=== PATIENT | female | born 1965 | race African-American/Black ===

== ENCOUNTER 2018-12-23 15:34 | Inpatient (IN) | payer OTHER ==
[2018-12-23 17:10] VITALS: BMI 40.7
--- NOTE | 2018-12-23 20:29 | HP ---
CIWA Score - Admission Criteria OASAS Guidelines: Admission for Medically Managed Detox: Requires at least one of the followin. CIWA greater than 12 2. Seizures within the past 24 hours 3. Delirium tremens within the past 24 hours 4. Hallucinations within the past 24 hours 5. Acute intervention needed for co occurring medical disorder 6. Acute intervention needed for co occurring psychiatric disorder 7. Severe withdrawal that cannot be handled at a lower level of care (continued vomiting, continued diarrhea, abnormal vital signs) requiring intravenous medication and/or fluids 8. Admission ROS S - HPI Chief Complaint: seeking rehab services for continuity of care. Allergies/Adverse Reactions: Allergies Allergy/AdvReac Type Severity Reaction Status Date / Time No Known Allergies Allergy Verified 12/23/18 18:33 History of Present Illness: 53 y.o female with alcohol and cocaine dependence here for rehab services. Client was referred by [facility] after completing detox today. This is her first admission here. Presents a/o x3 nad she reports her longest clean time is 8 years. she relapsed in 2017 after returning to the community. She denies hx/o seizures, si/hi, avh. She reports she is homeless, unemployed, she is on parole. pmhx- chf, herniated spinal disc and sciatica,copd, htn, dm psych- anxiety, depression and bipolar d/o Exam Limitations: No Limitations - Ebola screening Have you traveled outside of the country in the last 21 days: No Have you had contact with anyone from an Ebola affected area: No Have you been sick,other than usual withdrawal symptoms: No Do you have a fever: No - Review of Systems Constitutional: Chills, Malaise, Changes in sleep EENT: reports: Recent change in vision (lost glasses), Dental Problems (missing teeth) Respiratory: reports: Shortness of Breath Cardiac: reports: No Symptoms Reported GI: reports: Diarrhea : reports: No Symptoms Reported Musculoskeletal: reports: Back Pain (chronic), Joint Pain Integumentary: reports: No Symptoms Reported Neuro: reports: Headache, Tremors Endocrine: reports: Other (hx/o sweats) Hematology: reports: No Symptoms Reported Psychiatric: reports: Orientated x3, Anxious, Depressed Other Systems: Reviewed and Negative Patient History - Patient Medical History Hx Anemia: No Hx Asthma: Yes Hx Chronic Obstructive Pulmonary Disease (COPD): Yes Hx Cancer: No Hx Cardiac Disorders: No Hx Congestive Heart Failure: Yes Hx Hypertension: Yes Hx Hypercholesterolemia: No Hx Pacemaker: No HX Cerebrovascular Accident: No Hx Seizures: No Hx Dementia: No Hx Diabetes: Yes Hx Gastrointestinal Disorders: No Hx Liver Disease: Yes Hx Genitourinary Disorders: No Hx Sexually Transmitted Disorders: No Hx Renal Disease (ESRD): No Hx Thyroid Disease: No Hx Human Immunodeficiency Virus (HIV): No Hx Hepatitis C: No Hx Depression: Yes Hx Suicide Attempt: No Hx Bipolar Disorder: Yes Hx Schizophrenia: No Other Medical History: denies - Patient Surgical History Past Surgical History: Yes Hx Cholecystectomy: Yes - PPD History Previous Implant?: Yes Documented Results: Positive w/o proof Implanted On Prior [facility] Admission?: No PPD to be Administered?: No - Reproductive History Patient is a Female of Child Bearing Age (11 -55 yrs old): Yes LMP comment: menapause at 46 Patient : No ([facility]) - Smoking Cessation Smoking history: Current every day smoker Have you smoked in the past 12 months: Yes Aproximately how many cigarettes per day: 10 Cigars Per Day: 0 Hx Chewing Tobacco Use: No Initiated information on smoking cessation: Yes 'Breaking Loose' booklet given: 12/23/18 - Substance & Tx. History Hx Alcohol Use: Yes Hx Substance Use: Yes Substance Use Type: Alcohol, Cocaine Hx Substance Use Treatment: Yes ([facility]) - Substances Abused vodka Route: Oral Frequency: Daily Amount used: 2 pints Age of first use: 18 Date of Last Use: 12/20/18 cocaine Route: Smoking Frequency: 1-2 times per week Amount used: 8 ball Age of first use: 19 Date of Last Use: 12/20/18 Family Disease History - Family Disease History Family Disease History: Diabetes: Brother, [place]: Father (stomach), Other: Mother ( htn, alzhiemers) Admission Physical Exam [facility] - Vital Signs Vital Signs: Vital Signs - 24 hr 12/23/18 17:08 Temperature 98.1 F Pulse Rate 90 Respiratory 18 Rate Blood Pressure 130/84 - Physical General Appearance: Yes: Appropriately Dressed, Anxious HEENTM: Yes: EOMI, Normocephalic, Normal Voice, FLACA, Pharynx Normal, Other ( missing teeth) Respiratory: Yes: Chest Non-Tender, Lungs Clear, Normal Breath Sounds, No Respiratory Distress, No Accessory Muscle Use Neck: Yes: No masses,lesions,Nodules, Supple, Trachea in good position Breast: Yes: Breast Exam Deferred Cardiology: Yes: Regular Rhythm, S1, S2, Tachycardia Abdominal: Yes: Normal Bowel Sounds, Non Tender, Soft, Protuberent Genitourinary: Yes: Other (no c/o) Back: Yes: Normal Inspection, Decreased Range of Motion Musculoskeletal: Yes: full range of Motion, Gait Steady, Back pain (c/o) Extremities: Yes: Normal Capillary Refill, Normal Range of Motion, Non-Tender Neurological: Yes: Fully Oriented, Alert, Motor Strength 5/5, Normal Mood/Affect Integumentary: Yes: Normal Color, Dry, Warm, Other (chronic wound dry scabbed to right pointer finger) Lymphatic: Yes: Within Normal Limits - Diagnostic (1) Uncomplicated alcohol dependence Current Visit: Yes Status: Chronic (2) Cocaine abuse, uncomplicated Current Visit: Yes Status: Chronic (3) Nicotine dependence Current Visit: Yes Status: Chronic Qualifiers: Nicotine product type: cigarettes Substance use status: uncomplicated Qualified Code(s): F17.210 - Nicotine dependence, cigarettes, uncomplicated (4) History of positive PPD Current Visit: Yes Status: Chronic (5) HTN (hypertension) Current Visit: Yes Status: Chronic Qualifiers: Hypertension type: essential hypertension Qualified Code(s): I10 - Essential (primary) hypertension (6) Asthma Current Visit: Yes Status: Chronic Qualifiers: Asthma severity: mild Asthma persistence: intermittent Asthma complication type: unspecified Qualified Code(s): J45.20 - Mild intermittent asthma, uncomplicated (7) Diabetes Current Visit: Yes Status: Chronic Qualifiers: Diabetes mellitus type: type 2 (8) COPD (chronic obstructive pulmonary disease) Current Visit: Yes Status: Chronic (9) Substance induced mood disorder Current Visit: Yes Status: Chronic (10) CHF (congestive heart failure) Current Visit: Yes Status: Chronic (11) Sciatica Current Visit: Yes Status: Chronic Cleared for Admission [facility] - Detox or Rehab Detox Regimen/Protocol: Not Applicable Claeared for Rehab Admission: Yes [facility] Breath Alcohol Content Breath Alcohol Content: 0 Urine Pregancy Test - Result Urine Test Results: Negative - NO Line Present Urine Drug Screen - Results Drug Screen Negative: No Urine Drug Screen Results: WADE-Cocaine, BZO-Benzodiazepines Inpatient Rehab Admission - Rehab Decision to Admit Inpatient rehab admission?: Yes - Initial Determination Are CD services needed?: Yes Free of communicable disease: Yes Not in need of hospitalization: Yes - Rehab Admission Criteria Previous failed treatment: Yes Poor recovery environment: Yes Comorbidities: Yes Lacks judgement: No Patient is meeting Inpatient Rehab admission criteria:: Yes
[2018-12-23] MEDS ORDERED: IBUPROFEN 400 MG TABLET (FP) PO PRN (20:46)
[2018-12-23] MEDS ORDERED: LOPERAMIDE HCL 2 MG CAPSULE PO PRN (20:46)
[2018-12-23] MEDS ORDERED: MAGNESIUM CITRATE 300 ML BOTTLE PO PRN (20:46)
[2018-12-23] MEDS ORDERED: P-EPHED 60MG/TRIPROLIDI 2.5MG TABLET PO PRN (20:46)
[2018-12-23] MEDS ORDERED: NICOTINE POLACRILEX 2 MG GUM BC PRN (20:46)
[2018-12-23] MEDS ORDERED: hydrOXYzine PAMOATE 50 MG CAPSULE (FP) PO PRN (20:46)
[2018-12-23] MEDS ORDERED: guaiFENesin/D-METHORPHAN HB 10 ML UNIT-DOSE CUPS PO PRN (20:46)
[2018-12-23] MEDS ORDERED: MAGNESIUM HYDROX 2400MG/30ML ORAL SUSPENSION 30 ML CUP PO PRN (20:46)
[2018-12-23] MEDS ORDERED: MAG HYDROX/AL HYDROX/SIMETH 30 ML UNIT-DOSE CUP PO PRN (20:46)
[2018-12-23] MEDS ORDERED: ACETAMINOPHEN 325 MG TABLET (FP) PO PRN (20:46)
[2018-12-23] MEDS ORDERED: MELATONIN 5 MG TABLETS PO PRN (22:00)
[2018-12-23] MEDS ORDERED: metFORMIN HCL 500 MG TABLET (FP) PO SCH (22:00)
[2018-12-23 23:01] LABS: URINE APPEARANCE SLCLOUDY; URINE BILIRUBIN NEGATIVE (<2.0 mg/dL); URINE COLOR YELLOW; URINE GLUCOSE (UA) NEGATIVE (NEGATIVE); URINE KETONE NEGATIVE (NEGATIVE); URINE LEUK ESTERASE 3+ (NEGATIVE); URINE NITRITE NEGATIVE (NEGATIVE); URINE PROTEIN NEGATIVE (NEGATIVE)
[2018-12-23 23:04] LABS: EPI CELLS RARE /HPF (FEW); URINE MUCUS RARE
[2018-12-23] MEDS: METHOCARBAMOL 500 MG TABLET PO SCH (23:34)
[2018-12-23] MEDS: CARVEDILOL 6.25 MG TABLET (FP) PO SCH (23:34)
[2018-12-23] MEDS: THIAMINE HCL 100 MG TABLET (FP) PO SCH (23:34)
[2018-12-23] MEDS: GABAPENTIN 400 MG CAPSULE (FP) PO SCH (23:35)
[2018-12-23] MEDS: MONTELUKAST NA 10 MG TABLET PO SCH (23:35)
[2018-12-23] MEDS: FLUTICASONE/SALMETEROL 100 MCG/50 MCG DISKUS IH SCH (23:35)
[2018-12-23] MEDS: ATORVASTATIN CA 40 MG TABLET (FP) PO SCH (23:35)
[2018-12-23] MEDS: ALBUTEROL SO4 8 GM HFA INHALER IH SCH (23:37)
[2018-12-24] MEDS: ALBUTEROL SO4 8 GM HFA INHALER IH SCH ×2 (05:54→09:05)
[2018-12-24] MEDS: metFORMIN HCL 500 MG TABLET (FP) PO SCH ×2 (06:34→17:08)
[2018-12-24] MEDS: GABAPENTIN 400 MG CAPSULE (FP) PO SCH ×3 (06:34→21:20)
[2018-12-24] MEDS: NICOTINE 14 MG/24 HOURS TOPICAL PATCH TD SCH (09:52)
[2018-12-24] MEDS: LISINOPRIL 20 MG TABLET (FP) PO SCH (09:52)
[2018-12-24] MEDS: ASPIRIN 81 MG CHEWABLE TABLETS PO SCH (09:53)
[2018-12-24] MEDS: PRENATAL VITAMINS W/ FOLIC ACID TABLET (FP) PO SCH (09:53)
[2018-12-24] MEDS: METHOCARBAMOL 500 MG TABLET PO SCH ×4 (09:53→21:20)
[2018-12-24] MEDS: CARVEDILOL 6.25 MG TABLET (FP) PO SCH ×2 (09:56→21:20)
[2018-12-24] MEDS: FUROSEMIDE 20 MG TABLET (FP) PO SCH (09:56)
[2018-12-24] MEDS: FLUTICASONE/SALMETEROL 100 MCG/50 MCG DISKUS IH SCH ×2 (09:56→21:22)
[2018-12-24] MEDS: ZAFIRLUKAST 20 MG PO SCH (11:19)
[2018-12-24 13:12] LABS: HEMATOCRIT 36.4 % (32.4-45.2); HEMOGLOBIN 12.3 GM/dL (10.7-15.3); MCH 30.4 pg (25.7-33.7); MCHC 33.7 g/dl (32.0-36.0); MEAN CELL VOLUME 90.4 fl (80-96); MEAN PLT VOLUME 9.3 fl (7.5-11.1); PLATELET COUNT 209 K/MM3 (134-434); RBC 4.03 M/mm3 (3.60-5.2); RDW 15.5 % (11.6-15.6); WHITE BLOOD COUNT 5.7 K/mm3 (4.0-10.0)
[2018-12-24 13:17] LABS: ALK PHOS 101 U/L (45-117); ANION GAP 7 MMOL/L (8-16); BILIRUBIN,TOTAL 0.4 mg/dL (0.2-1); BLOOD UREA NITROGEN 16 mg/dL (7-18); CHLORIDE 107 mmol/L (98-107); CO2 28 mmol/L (21-32); CREATININE 1.4 mg/dL (0.55-1.3); GLUCOSE,RANDOM 117 mg/dL (74-106); POTASSIUM 4.1 mmol/L (3.5-5.1); SGOT/AST 7 U/L (15-37); SGPT/ALT 12 U/L (13-61); SODIUM 142 mmol/L (136-145); TOT PROT 6.2 g/dl (6.4-8.2)
--- NOTE | 2018-12-24 14:01 | EKG ---
Test Reason : Blood Pressure : / mmHG Vent. Rate : 096 BPM Atrial Rate : 096 BPM P-R Int : 164 ms QRS Dur : 102 ms QT Int : 382 ms P-R-T Axes : 061 -48 100 degrees QTc Int : 482 ms NORMAL SINUS RHYTHM POSSIBLE LEFT ATRIAL ENLARGEMENT LEFT ANTERIOR FASCICULAR BLOCK INFERIOR INFARCT , AGE UNDETERMINED ANTERIOR INFARCT , AGE UNDETERMINED T WAVE ABNORMALITY, CONSIDER LATERAL ISCHEMIA ABNORMAL ECG NO PREVIOUS ECGS AVAILABLE Confirmed by MD Shad, Taz ([id number]) on 12/24/2018 2:01:03 PM Referred By: Confirmed By:Taz Kulkarni MD
--- NOTE | 2018-12-24 14:15 | CONSULT ---
[facility] Psychiatric Consult - Data Date of interview: 12/24/18 Admission source: [facility] detox Identifying data: Ms Morrell is a 53 years old single Black female, mother of 6 children, unemployed receiving public assistance, homeless seeking detox treatment for alcohol and cocaine Substance Abuse History: Reports history of alcohol and cocaine use. Refer to addiction counselor's summary for further information Medical History: Significant for COPD, hypertension, type 2 diabetes mellitus, congestive heart failure, herniated disc/sciatica, history of treatment for PPD + cholecystectomy. Smokes 10 cigarettes daily Psychiatric History: Reports that her first psychiatric contact was while in [place] [facility] between 2007 and 2016. She was started on Seroquel and Trazadone. Reports 2 previous psychiatric hospitalizations both at [facility] after her release from [place] [facility] in [facility]. Her most recent hospialization was in 2018 for depression. Reports receiving psychiatric outpatient treatment at [facility] in the [place] and she is prescribed Seroquel 200 mg po HS and Trazadone 100 mg po HS. Denies experiencing psychotic, manic or depressive symptoms, S/H ideations. Physical/Sexual Abuse/Trauma History: Denies history of emotional, physical or sexual abuse as well as DV relationship Additional Comment: Reports history of multiple previous arrests. Reports being currently on parole ending Oct 2020 Mental Status Exam - Mental Status Exam Alert and Oriented to: Time, Place, Person Cognitive Function: Fair Patient Appearance: Well Groomed Mood: Hopeful, Euthymic Affect: Appropriate Patient Behavior: Cooperative Speech Pattern: Clear Voice Loudness: Normal Thought Process: Intact Thought Disorder: Not Present Suicidal Ideation: Denies Homicidal Ideation: Denies Insight/Judgement: Fair Sleep: Poorly Appetite: Good Muscle strength/Tone: Normal Gait/Station: Normal Psychiatric Findings - Problem List ([place] 1, 2,3) (1) Bipolar disorder Current Visit: Yes Status: Chronic (2) Substance-induced sleep disorder Current Visit: Yes Status: Acute (3) Alcohol dependence Current Visit: Yes Status: Acute (4) Cocaine dependence Current Visit: Yes Status: Acute (5) Nicotine dependence Current Visit: Yes Status: Chronic (6) CHF (congestive heart failure) Current Visit: Yes Status: Chronic (7) COPD (chronic obstructive pulmonary disease) Current Visit: Yes Status: Chronic (8) Diabetes Current Visit: Yes Status: Chronic Qualifiers: Diabetes mellitus type: type 2 (9) HTN (hypertension) Current Visit: Yes Status: Chronic Qualifiers: Hypertension type: essential hypertension Qualified Code(s): I10 - Essential (primary) hypertension (10) History of positive PPD Current Visit: Yes Status: Resolved (11) Sciatica Current Visit: Yes Status: Chronic - Initial Treatment Plan Initial Treatment Plan: 1) Continue Seroquel 200 mg po HS and Trazadone 100 mg po HS. 2) Continue inpatient rehabilitation
[2018-12-24] MEDS: ATORVASTATIN CA 40 MG TABLET (FP) PO SCH (21:20)
[2018-12-24] MEDS: MONTELUKAST NA 10 MG TABLET PO SCH (21:20)
[2018-12-24] MEDS: traZODone HCL 100 MG TABLET (FP) PO SCH (21:20)
[2018-12-24] MEDS: QUEtiapine FUMARATE 200 MG TABLET PO SCH (21:20)
[2018-12-24] MEDS: THIAMINE HCL 100 MG TABLET (FP) PO SCH (21:20)
[2018-12-25] MEDS: GABAPENTIN 400 MG CAPSULE (FP) PO SCH ×3 (06:42→21:36)
[2018-12-25] MEDS: metFORMIN HCL 500 MG TABLET (FP) PO SCH ×2 (06:44→17:00)
[2018-12-25] MEDS: FLUTICASONE/SALMETEROL 100 MCG/50 MCG DISKUS IH SCH ×2 (09:53→21:37)
[2018-12-25] MEDS: FUROSEMIDE 20 MG TABLET (FP) PO SCH (09:54)
[2018-12-25] MEDS: NICOTINE 14 MG/24 HOURS TOPICAL PATCH TD SCH (09:54)
[2018-12-25] MEDS: ASPIRIN 81 MG CHEWABLE TABLETS PO SCH (09:54)
[2018-12-25] MEDS: CARVEDILOL 6.25 MG TABLET (FP) PO SCH ×2 (09:54→21:36)
[2018-12-25] MEDS: PRENATAL VITAMINS W/ FOLIC ACID TABLET (FP) PO SCH (09:55)
[2018-12-25] MEDS: LISINOPRIL 20 MG TABLET (FP) PO SCH (09:55)
[2018-12-25] MEDS: METHOCARBAMOL 500 MG TABLET PO SCH ×4 (09:56→21:37)
[2018-12-25] MEDS: MONTELUKAST NA 10 MG TABLET PO SCH (21:35)
[2018-12-25] MEDS: THIAMINE HCL 100 MG TABLET (FP) PO SCH (21:35)
[2018-12-25] MEDS: ATORVASTATIN CA 40 MG TABLET (FP) PO SCH (21:35)
[2018-12-25] MEDS: QUEtiapine FUMARATE 200 MG TABLET PO SCH (21:36)
[2018-12-25] MEDS: traZODone HCL 100 MG TABLET (FP) PO SCH (21:36)
[2018-12-26] MEDS: GABAPENTIN 400 MG CAPSULE (FP) PO SCH ×3 (06:38→21:20)
[2018-12-26] MEDS: metFORMIN HCL 500 MG TABLET (FP) PO SCH ×2 (06:38→16:49)
[2018-12-26] MEDS ORDERED: PT OWN MED DRAWER 7, Y5N ONE (08:27)
[2018-12-26] MEDS: FLUTICASONE/SALMETEROL 100 MCG/50 MCG DISKUS IH SCH ×2 (10:18→21:19)
[2018-12-26] MEDS: PRENATAL VITAMINS W/ FOLIC ACID TABLET (FP) PO SCH (10:19)
[2018-12-26] MEDS: METHOCARBAMOL 500 MG TABLET PO SCH ×4 (10:19→21:20)
[2018-12-26] MEDS: NICOTINE 14 MG/24 HOURS TOPICAL PATCH TD SCH (10:19)
[2018-12-26] MEDS: CARVEDILOL 6.25 MG TABLET (FP) PO SCH ×2 (10:19→21:22)
[2018-12-26] MEDS: FUROSEMIDE 20 MG TABLET (FP) PO SCH (10:19)
[2018-12-26] MEDS: ASPIRIN 81 MG CHEWABLE TABLETS PO SCH (10:19)
[2018-12-26] MEDS: LISINOPRIL 20 MG TABLET (FP) PO SCH (10:19)
--- NOTE | 2018-12-26 12:18 | PN ---
[facility] Progress Note Note: CXR ON 12/24/18 WNL, NO PATHOLOGY. Vital Signs (72 hours) 12/23/18 12/23/18 12/24/18 17:08 22:05 00:30 Temperature 98.1 F 98.1 F Pulse Rate 90 92 H Respiratory 18 18 18 Rate Blood Pressure 130/84 139/89 12/24/18 12/24/18 12/24/18 03:30 06:48 10:00 Temperature 97.7 F Pulse Rate 86 92 H Respiratory 18 18 18 Rate Blood Pressure 118/79 132/89 12/24/18 12/25/18 12/25/18 20:46 00:30 03:30 Temperature Pulse Rate 80 Respiratory 18 18 Rate Blood Pressure 124/83 12/25/18 12/25/18 12/25/18 07:05 09:04 22:23 Temperature 97.2 F L Pulse Rate 86 85 90 Respiratory 18 Rate Blood Pressure 136/81 120/75 119/81 12/26/18 12/26/18 12/26/18 00:30 03:30 07:00 Temperature 98.1 F Pulse Rate 84 Respiratory 18 18 18 Rate Blood Pressure 119/85 12/26/18 10:00 Temperature Pulse Rate 93 H Respiratory Rate Blood Pressure 121/82 Laboratory Tests 12/23/18 12/24/18 12/24/18 22:45 06:34 08:30 WBC 5.7 RBC 4.03 Hgb 12.3 Hct 36.4 MCV 90.4 MCH 30.4 MCHC 33.7 RDW 15.5 Plt Count 209 MPV 9.3 Sodium Potassium Chloride Carbon Dioxide Anion Gap BUN Creatinine Creat Clearance w eGFR POC Glucometer 167 Random Glucose Calcium Total Bilirubin AST ALT Alkaline Phosphatase Total Protein Albumin Urine Color Yellow Urine Appearance Slcloudy Urine pH 6.0 Ur Specific [place] 1.016 Urine Protein Negative Urine Glucose (UA) Negative Urine Ketones Negative Urine Blood Negative Urine Nitrite Negative Urine Bilirubin Negative Urine Urobilinogen 2.0 H Ur Leukocyte Esterase 3+ H Urine WBC (Auto) 32 Urine RBC (Auto) 2 Ur Epithelial Cells Rare Urine Mucus Rare RPR Titer HIV 1&2 Antibody Screen HIV P24 Antigen 12/24/18 12/24/18 12/24/18 08:30 08:30 08:30 WBC RBC Hgb Hct MCV MCH MCHC RDW Plt Count MPV Sodium 142 Potassium 4.1 Chloride 107 Carbon Dioxide 28 Anion Gap 7 L BUN 16 Creatinine 1.4 H Creat Clearance w eGFR 39.49 POC Glucometer Random Glucose 117 H Calcium 8.0 L Total Bilirubin 0.4 AST 7 L ALT 12 L Alkaline Phosphatase 101 Total Protein 6.2 L Albumin 3.0 L Urine Color Urine Appearance Urine pH Ur Specific [place] Urine Protein Urine Glucose (UA) Urine Ketones Urine Blood Urine Nitrite Urine Bilirubin Urine Urobilinogen Ur Leukocyte Esterase Urine WBC (Auto) Urine RBC (Auto) Ur Epithelial Cells Urine Mucus RPR Titer Nonreactive HIV 1&2 Antibody Screen Negative HIV P24 Antigen Negative 12/24/18 12/25/18 12/25/18 17:08 06:43 16:59 WBC RBC Hgb Hct MCV MCH MCHC RDW Plt Count MPV Sodium Potassium Chloride Carbon Dioxide Anion Gap BUN Creatinine Creat Clearance w eGFR POC Glucometer 129 124 146 Random Glucose Calcium Total Bilirubin AST ALT Alkaline Phosphatase Total Protein Albumin Urine Color Urine Appearance Urine pH Ur Specific [place] Urine Protein Urine Glucose (UA) Urine Ketones Urine Blood Urine Nitrite Urine Bilirubin Urine Urobilinogen Ur Leukocyte Esterase Urine WBC (Auto) Urine RBC (Auto) Ur Epithelial Cells Urine Mucus RPR Titer HIV 1&2 Antibody Screen HIV P24 Antigen 12/26/18 06:39 WBC RBC Hgb Hct MCV MCH MCHC RDW Plt Count MPV Sodium Potassium Chloride Carbon Dioxide Anion Gap BUN Creatinine Creat Clearance w eGFR POC Glucometer 122 Random Glucose Calcium Total Bilirubin AST ALT Alkaline Phosphatase Total Protein Albumin Urine Color Urine Appearance Urine pH Ur Specific [place] Urine Protein Urine Glucose (UA) Urine Ketones Urine Blood Urine Nitrite Urine Bilirubin Urine Urobilinogen Ur Leukocyte Esterase Urine WBC (Auto) Urine RBC (Auto) Ur Epithelial Cells Urine Mucus RPR Titer HIV 1&2 Antibody Screen HIV P24 Antigen INCREASE PO FLUIDS.
--- NOTE | 2018-12-26 12:42 | PN ---
[facility] Progress Note Note: Client had requested to be seen to discuss her concerns about a mammogram done prior to admission. Client was called twice to see this provider but reported that she was too tired and did not want to discuss it any more. CXR viewed, no issues noted.
[2018-12-26] MEDS ORDERED: BISMUTH SUBSALICYLATE 262 MG TAB.CHEW PO PRN (15:34)
--- NOTE | 2018-12-26 15:37 | PN ---
S Progress Note (SOAP) Subjective: Patient states that she began to feel nauseated after eating. Objective: 12/26/18 15:33 Resting comfortably, positive bowel sounds all 4 quadrants. Assessment: dyspepsia 12/26/18 15:33 Plan: Ordered Pepto Bismol
[2018-12-26] MEDS ORDERED: BISMUTH SUBSALICYLATE 262 MG/15 ML BTL PO ONE (16:30)
[2018-12-26] MEDS: QUEtiapine FUMARATE 200 MG TABLET PO SCH (21:20)
[2018-12-26] MEDS: traZODone HCL 100 MG TABLET (FP) PO SCH (21:20)
[2018-12-26] MEDS: THIAMINE HCL 100 MG TABLET (FP) PO SCH (21:20)
[2018-12-26] MEDS: ATORVASTATIN CA 40 MG TABLET (FP) PO SCH (21:21)
[2018-12-26] MEDS: MONTELUKAST NA 10 MG TABLET PO SCH (21:21)
[2018-12-27] MEDS: GABAPENTIN 400 MG CAPSULE (FP) PO SCH (06:47)
[2018-12-27] MEDS: metFORMIN HCL 500 MG TABLET (FP) PO SCH ×2 (06:47→17:20)
[2018-12-27] MEDS: ASPIRIN 81 MG CHEWABLE TABLETS PO SCH (10:11)
[2018-12-27] MEDS: FUROSEMIDE 20 MG TABLET (FP) PO SCH (10:11)
[2018-12-27] MEDS: CARVEDILOL 6.25 MG TABLET (FP) PO SCH ×2 (10:11→22:00)
[2018-12-27] MEDS: NICOTINE 14 MG/24 HOURS TOPICAL PATCH TD SCH (10:11)
[2018-12-27] MEDS: PRENATAL VITAMINS W/ FOLIC ACID TABLET (FP) PO SCH (10:11)
[2018-12-27] MEDS: LISINOPRIL 20 MG TABLET (FP) PO SCH (10:11)
[2018-12-27] MEDS: METHOCARBAMOL 500 MG TABLET PO SCH ×5 (10:11→22:05)
[2018-12-27] MEDS: FLUTICASONE/SALMETEROL 100 MCG/50 MCG DISKUS IH SCH ×2 (10:12→22:03)
[2018-12-27] MEDS: LIDOCAINE 5% TOPICAL PATCH TP SCH (12:12)
--- NOTE | 2018-12-27 12:15 | PN ---
[facility] Progress Note Note: PATIENT SEEN FOR C/O SCIATICA. REPORTS H/O DISC HERNIATION WITH NUMBNESS AND TINGLING TO LEGS. TREATED WITH ROBAXIN/GABAPENTIN. PATIENT STATES CURRENT DOSE OF GABAPENTIN INEFFECTIVE FOR PAIN RELIEF. Vital Signs Temperature 97.3 F L 12/27/18 06:57 Pulse Rate 82 12/27/18 06:57 Respiratory Rate 18 12/27/18 06:57 Blood Pressure 118/78 12/27/18 06:57 O2 Sat by Pulse Oximetry (%) Laboratory Tests 12/23/18 12/24/18 12/24/18 22:45 06:34 08:30 WBC 5.7 RBC 4.03 Hgb 12.3 Hct 36.4 MCV 90.4 MCH 30.4 MCHC 33.7 RDW 15.5 Plt Count 209 MPV 9.3 Sodium Potassium Chloride Carbon Dioxide Anion Gap BUN Creatinine Creat Clearance w eGFR POC Glucometer 167 Random Glucose Calcium Total Bilirubin AST ALT Alkaline Phosphatase Total Protein Albumin Urine Color Yellow Urine Appearance Slcloudy Urine pH 6.0 Ur Specific [place] 1.016 Urine Protein Negative Urine Glucose (UA) Negative Urine Ketones Negative Urine Blood Negative Urine Nitrite Negative Urine Bilirubin Negative Urine Urobilinogen 2.0 H Ur Leukocyte Esterase 3+ H Urine WBC (Auto) 32 Urine RBC (Auto) 2 Ur Epithelial Cells Rare Urine Mucus Rare RPR Titer HIV 1&2 Antibody Screen HIV P24 Antigen 12/24/18 12/24/18 12/24/18 08:30 08:30 08:30 WBC RBC Hgb Hct MCV MCH MCHC RDW Plt Count MPV Sodium 142 Potassium 4.1 Chloride 107 Carbon Dioxide 28 Anion Gap 7 L BUN 16 Creatinine 1.4 H Creat Clearance w eGFR 39.49 POC Glucometer Random Glucose 117 H Calcium 8.0 L Total Bilirubin 0.4 AST 7 L ALT 12 L Alkaline Phosphatase 101 Total Protein 6.2 L Albumin 3.0 L Urine Color Urine Appearance Urine pH Ur Specific [place] Urine Protein Urine Glucose (UA) Urine Ketones Urine Blood Urine Nitrite Urine Bilirubin Urine Urobilinogen Ur Leukocyte Esterase Urine WBC (Auto) Urine RBC (Auto) Ur Epithelial Cells Urine Mucus RPR Titer Nonreactive HIV 1&2 Antibody Screen Negative HIV P24 Antigen Negative 12/24/18 12/25/18 12/25/18 17:08 06:43 16:59 WBC RBC Hgb Hct MCV MCH MCHC RDW Plt Count MPV Sodium Potassium Chloride Carbon Dioxide Anion Gap BUN Creatinine Creat Clearance w eGFR POC Glucometer 129 124 146 Random Glucose Calcium Total Bilirubin AST ALT Alkaline Phosphatase Total Protein Albumin Urine Color Urine Appearance Urine pH Ur Specific [place] Urine Protein Urine Glucose (UA) Urine Ketones Urine Blood Urine Nitrite Urine Bilirubin Urine Urobilinogen Ur Leukocyte Esterase Urine WBC (Auto) Urine RBC (Auto) Ur Epithelial Cells Urine Mucus RPR Titer HIV 1&2 Antibody Screen HIV P24 Antigen 12/26/18 12/26/18 12/27/18 06:39 16:49 06:46 WBC RBC Hgb Hct MCV MCH MCHC RDW Plt Count MPV Sodium Potassium Chloride Carbon Dioxide Anion Gap BUN Creatinine Creat Clearance w eGFR POC Glucometer 122 133 115 Random Glucose Calcium Total Bilirubin AST ALT Alkaline Phosphatase Total Protein Albumin Urine Color Urine Appearance Urine pH Ur Specific [place] Urine Protein Urine Glucose (UA) Urine Ketones Urine Blood Urine Nitrite Urine Bilirubin Urine Urobilinogen Ur Leukocyte Esterase Urine WBC (Auto) Urine RBC (Auto) Ur Epithelial Cells Urine Mucus RPR Titer HIV 1&2 Antibody Screen HIV P24 Antigen PE: ALERT AND ORIENTED X 3 SKIN WARM AND DRY MS SPINE + TENDERNESS TO LS SPINE EXT AMB WITH LIMP, FULL ROM A/P LBP WITH SCIATICA INCREASE GABAPENTIN TO 600MG PO TID START LIDOCAINE 5% PATCH DAILY CANE FOR AMBULATION SUPPORT ROBAXIN CONTINUE ORDERED REST MONITOR CLINICALLY
[2018-12-27] MEDS: GABAPENTIN 300 MG CAPSULE (FP) PO SCH ×3 (14:55→22:05)
[2018-12-27] MEDS: LIDOCAINE PATCH REMOVAL MC SCH (22:00)
[2018-12-27] MEDS: ATORVASTATIN CA 40 MG TABLET (FP) PO SCH (22:00)
[2018-12-27] MEDS: traZODone HCL 100 MG TABLET (FP) PO SCH (22:00)
[2018-12-27] MEDS: QUEtiapine FUMARATE 200 MG TABLET PO SCH (22:05)
[2018-12-27] MEDS: MONTELUKAST NA 10 MG TABLET PO SCH (22:05)
[2018-12-27] MEDS: THIAMINE HCL 100 MG TABLET (FP) PO SCH (22:06)
[2018-12-28] MEDS: GABAPENTIN 300 MG CAPSULE (FP) PO SCH ×4 (07:51→21:14)
[2018-12-28] MEDS: metFORMIN HCL 500 MG TABLET (FP) PO SCH ×2 (07:51→17:12)
[2018-12-28] MEDS: LISINOPRIL 20 MG TABLET (FP) PO SCH (10:22)
[2018-12-28] MEDS: FUROSEMIDE 20 MG TABLET (FP) PO SCH (10:22)
[2018-12-28] MEDS: ASPIRIN 81 MG CHEWABLE TABLETS PO SCH (10:22)
[2018-12-28] MEDS: CARVEDILOL 6.25 MG TABLET (FP) PO SCH ×2 (10:22→21:14)
[2018-12-28] MEDS: PRENATAL VITAMINS W/ FOLIC ACID TABLET (FP) PO SCH (10:22)
[2018-12-28] MEDS: METHOCARBAMOL 500 MG TABLET PO SCH ×4 (10:22→21:13)
[2018-12-28] MEDS: FLUTICASONE/SALMETEROL 100 MCG/50 MCG DISKUS IH SCH ×2 (10:23→22:20)
[2018-12-28] MEDS: LIDOCAINE 5% TOPICAL PATCH TP SCH (10:24)
[2018-12-28] MEDS: NICOTINE 14 MG/24 HOURS TOPICAL PATCH TD SCH (10:25)
[2018-12-28] MEDS: ATORVASTATIN CA 40 MG TABLET (FP) PO SCH (21:12)
[2018-12-28] MEDS: QUEtiapine FUMARATE 200 MG TABLET PO SCH (21:13)
[2018-12-28] MEDS: MONTELUKAST NA 10 MG TABLET PO SCH (21:14)
[2018-12-28] MEDS: LIDOCAINE PATCH REMOVAL MC SCH (21:14)
[2018-12-28] MEDS: traZODone HCL 100 MG TABLET (FP) PO SCH (21:14)
[2018-12-28] MEDS: THIAMINE HCL 100 MG TABLET (FP) PO SCH (21:14)
[2018-12-29] MEDS: metFORMIN HCL 500 MG TABLET (FP) PO SCH ×2 (06:50→17:17)
[2018-12-29] MEDS: GABAPENTIN 300 MG CAPSULE (FP) PO SCH ×3 (06:50→21:20)
[2018-12-29] MEDS ORDERED: PT OWN MED DRAWER 7, Y5N ONE (08:30)
[2018-12-29] MEDS: CARVEDILOL 6.25 MG TABLET (FP) PO SCH ×2 (10:01→21:21)
[2018-12-29] MEDS: METHOCARBAMOL 500 MG TABLET PO SCH ×4 (10:01→21:20)
[2018-12-29] MEDS: PRENATAL VITAMINS W/ FOLIC ACID TABLET (FP) PO SCH (10:01)
[2018-12-29] MEDS: ASPIRIN 81 MG CHEWABLE TABLETS PO SCH (10:01)
[2018-12-29] MEDS: LISINOPRIL 20 MG TABLET (FP) PO SCH (10:01)
[2018-12-29] MEDS: NICOTINE 14 MG/24 HOURS TOPICAL PATCH TD SCH (10:01)
[2018-12-29] MEDS: FLUTICASONE/SALMETEROL 100 MCG/50 MCG DISKUS IH SCH ×2 (10:01→21:21)
[2018-12-29] MEDS: FUROSEMIDE 20 MG TABLET (FP) PO SCH (10:01)
[2018-12-29] MEDS: LIDOCAINE 5% TOPICAL PATCH TP SCH (10:02)
--- NOTE | 2018-12-29 11:58 | EKG ---
Test Reason : Blood Pressure : / mmHG Vent. Rate : 096 BPM Atrial Rate : 096 BPM P-R Int : 164 ms QRS Dur : 102 ms QT Int : 382 ms P-R-T Axes : 061 -48 100 degrees QTc Int : 482 ms NORMAL SINUS RHYTHM POSSIBLE LEFT ATRIAL ENLARGEMENT LEFT ANTERIOR FASCICULAR BLOCK INFERIOR INFARCT , AGE UNDETERMINED ANTERIOR INFARCT , AGE UNDETERMINED T WAVE ABNORMALITY, CONSIDER LATERAL ISCHEMIA ABNORMAL ECG NO PREVIOUS ECGS AVAILABLE Confirmed by JAVI MORA, JANE ([id number]) on 12/29/2018 11:57:33 AM Referred By: Confirmed By:JANE CALDWELL MD
[2018-12-29] MEDS: ALBUTEROL SO4 8 GM HFA INHALER IH PRN (15:40)
[2018-12-29] MEDS ORDERED: ATORVASTATIN CA 20 MG TABLET (FP) ONE (19:26)
[2018-12-29] MEDS: QUEtiapine FUMARATE 200 MG TABLET PO SCH (21:19)
[2018-12-29] MEDS: ATORVASTATIN CA 40 MG TABLET (FP) PO SCH (21:19)
[2018-12-29] MEDS: LIDOCAINE PATCH REMOVAL MC SCH (21:20)
[2018-12-29] MEDS: MONTELUKAST NA 10 MG TABLET PO SCH (21:20)
[2018-12-29] MEDS: traZODone HCL 100 MG TABLET (FP) PO SCH (21:20)
[2018-12-29] MEDS: THIAMINE HCL 100 MG TABLET (FP) PO SCH (21:20)
[2018-12-30] MEDS: metFORMIN HCL 500 MG TABLET (FP) PO SCH ×2 (06:35→17:27)
[2018-12-30] MEDS: GABAPENTIN 300 MG CAPSULE (FP) PO SCH ×3 (06:35→21:31)
[2018-12-30] MEDS: NICOTINE 14 MG/24 HOURS TOPICAL PATCH TD SCH (10:37)
[2018-12-30] MEDS: LIDOCAINE 5% TOPICAL PATCH TP SCH (10:37)
[2018-12-30] MEDS: ASPIRIN 81 MG CHEWABLE TABLETS PO SCH (10:39)
[2018-12-30] MEDS: FUROSEMIDE 20 MG TABLET (FP) PO SCH (10:40)
[2018-12-30] MEDS: CARVEDILOL 6.25 MG TABLET (FP) PO SCH ×2 (10:40→21:31)
[2018-12-30] MEDS: LISINOPRIL 20 MG TABLET (FP) PO SCH (10:40)
[2018-12-30] MEDS: PRENATAL VITAMINS W/ FOLIC ACID TABLET (FP) PO SCH (10:40)
[2018-12-30] MEDS: METHOCARBAMOL 500 MG TABLET PO SCH ×4 (10:40→21:32)
[2018-12-30] MEDS: FLUTICASONE/SALMETEROL 100 MCG/50 MCG DISKUS IH SCH ×2 (10:40→21:32)
[2018-12-30] MEDS: MONTELUKAST NA 10 MG TABLET PO SCH (21:31)
[2018-12-30] MEDS: QUEtiapine FUMARATE 200 MG TABLET PO SCH (21:31)
[2018-12-30] MEDS: traZODone HCL 100 MG TABLET (FP) PO SCH (21:31)
[2018-12-30] MEDS: ATORVASTATIN CA 40 MG TABLET (FP) PO SCH (21:31)
[2018-12-30] MEDS: LIDOCAINE PATCH REMOVAL MC SCH (21:32)
[2018-12-30] MEDS: THIAMINE HCL 100 MG TABLET (FP) PO SCH (21:32)
[2018-12-31] MEDS ORDERED: PT OWN MED DRAWER 7, Y5N ONE ×3 (05:47→19:41)
[2018-12-31] MEDS: metFORMIN HCL 500 MG TABLET (FP) PO SCH ×2 (07:02→16:40)
[2018-12-31] MEDS: GABAPENTIN 300 MG CAPSULE (FP) PO SCH ×3 (07:02→21:09)
[2018-12-31] MEDS: ALBUTEROL SO4 8 GM HFA INHALER IH PRN (08:40)
[2018-12-31] MEDS: LISINOPRIL 20 MG TABLET (FP) PO SCH (09:49)
[2018-12-31] MEDS: ASPIRIN 81 MG CHEWABLE TABLETS PO SCH (09:49)
[2018-12-31] MEDS: LIDOCAINE 5% TOPICAL PATCH TP SCH (09:49)
[2018-12-31] MEDS: NICOTINE 14 MG/24 HOURS TOPICAL PATCH TD SCH (09:49)
[2018-12-31] MEDS: FUROSEMIDE 20 MG TABLET (FP) PO SCH (09:49)
[2018-12-31] MEDS: PRENATAL VITAMINS W/ FOLIC ACID TABLET (FP) PO SCH (09:49)
[2018-12-31] MEDS: METHOCARBAMOL 500 MG TABLET PO SCH ×4 (09:49→21:11)
[2018-12-31] MEDS: FLUTICASONE/SALMETEROL 100 MCG/50 MCG DISKUS IH SCH ×2 (09:50→21:11)
[2018-12-31] MEDS: CARVEDILOL 6.25 MG TABLET (FP) PO SCH ×2 (09:50→21:09)
[2018-12-31] MEDS: traZODone HCL 100 MG TABLET (FP) PO SCH (21:09)
[2018-12-31] MEDS: ATORVASTATIN CA 40 MG TABLET (FP) PO SCH (21:09)
[2018-12-31] MEDS: THIAMINE HCL 100 MG TABLET (FP) PO SCH (21:09)
[2018-12-31] MEDS: QUEtiapine FUMARATE 200 MG TABLET PO SCH (21:09)
[2018-12-31] MEDS: MONTELUKAST NA 10 MG TABLET PO SCH (21:09)
[2018-12-31] MEDS: LIDOCAINE PATCH REMOVAL MC SCH (21:11)
[2019-01-01] MEDS: LIDOCAINE PATCH REMOVAL MC SCH (00:14)
[2019-01-01] MEDS: ALBUTEROL SO4 8 GM HFA INHALER IH PRN (03:20)
[2019-01-01] MEDS: MENTHOL/PHENOL 1 EACH UD MM PRN (03:21)
[2019-01-01] MEDS ORDERED: ALBUTEROL SO4 2.5/IPRATROPIUM 0.5 INH SOL 3 ML VIAL.NEB. NEB ONE (04:30)
[2019-01-01] MEDS: metFORMIN HCL 500 MG TABLET (FP) PO SCH ×2 (06:36→17:35)
[2019-01-01] MEDS: GABAPENTIN 300 MG CAPSULE (FP) PO SCH ×3 (06:36→21:43)
[2019-01-01] MEDS: FUROSEMIDE 20 MG TABLET (FP) PO SCH (09:09)
[2019-01-01] MEDS: LISINOPRIL 20 MG TABLET (FP) PO SCH (09:09)
[2019-01-01] MEDS: ASPIRIN 81 MG CHEWABLE TABLETS PO SCH (09:09)
[2019-01-01] MEDS: METHOCARBAMOL 500 MG TABLET PO SCH ×4 (09:09→21:43)
[2019-01-01] MEDS: PRENATAL VITAMINS W/ FOLIC ACID TABLET (FP) PO SCH (09:09)
[2019-01-01] MEDS: FLUTICASONE/SALMETEROL 100 MCG/50 MCG DISKUS IH SCH ×2 (09:09→22:45)
[2019-01-01] MEDS: NICOTINE 14 MG/24 HOURS TOPICAL PATCH TD SCH (09:09)
[2019-01-01] MEDS: LIDOCAINE 5% TOPICAL PATCH TP SCH (09:09)
[2019-01-01] MEDS: CARVEDILOL 6.25 MG TABLET (FP) PO SCH ×2 (09:09→21:43)
[2019-01-01] MEDS ORDERED: PT OWN MED DRAWER 7, Y5N ONE (09:11)
[2019-01-01] MEDS ORDERED: ALBUTEROL SO4 2.5/IPRATROPIUM 0.5 INH SOL 3 ML VIAL.NEB. NEB PRN (09:21)
--- NOTE | 2019-01-01 09:30 | PN ---
[facility] Progress Note Note: PT C/O SOB AND FEELING TIRED. REPORTS COUGHING AND IRRITATION OF THROAT BUT DENIES PRODUCTIVE SPUTUM. DENIES RUNNY NOSE. REPORTS DECREASED SLEEP LAST NIGHT. NEBULIZED ONCE DURING THE NIGHT. PT LAYING IN BED BUT GOT UP INSTANTLY WITH NO DIFFICULTY. ALERT O X 3. Vital Signs - 24 hr 12/31/18 12/31/18 01/01/19 10:00 21:25 00:30 Temperature Pulse Rate 102 H 94 H Respiratory 18 18 Rate Blood Pressure 131/87 148/83 01/01/19 01/01/19 07:02 09:10 Temperature 98.5 F 97.5 F L Pulse Rate 91 H 97 H Respiratory 18 22 H Rate Blood Pressure 158/99 137/75 Laboratory Tests 12/23/18 12/24/18 12/24/18 22:45 06:34 08:30 WBC 5.7 RBC 4.03 Hgb 12.3 Hct 36.4 MCV 90.4 MCH 30.4 MCHC 33.7 RDW 15.5 Plt Count 209 MPV 9.3 Sodium Potassium Chloride Carbon Dioxide Anion Gap BUN Creatinine Creat Clearance w eGFR POC Glucometer 167 Random Glucose Calcium Total Bilirubin AST ALT Alkaline Phosphatase Total Protein Albumin Urine Color Yellow Urine Appearance Slcloudy Urine pH 6.0 Ur Specific [place] 1.016 Urine Protein Negative Urine Glucose (UA) Negative Urine Ketones Negative Urine Blood Negative Urine Nitrite Negative Urine Bilirubin Negative Urine Urobilinogen 2.0 H Ur Leukocyte Esterase 3+ H Urine WBC (Auto) 32 Urine RBC (Auto) 2 Ur Epithelial Cells Rare Urine Mucus Rare RPR Titer HIV 1&2 Antibody Screen HIV P24 Antigen 12/24/18 12/24/18 12/24/18 08:30 08:30 08:30 WBC RBC Hgb Hct MCV MCH MCHC RDW Plt Count MPV Sodium 142 Potassium 4.1 Chloride 107 Carbon Dioxide 28 Anion Gap 7 L BUN 16 Creatinine 1.4 H Creat Clearance w eGFR 39.49 POC Glucometer Random Glucose 117 H Calcium 8.0 L Total Bilirubin 0.4 AST 7 L ALT 12 L Alkaline Phosphatase 101 Total Protein 6.2 L Albumin 3.0 L Urine Color Urine Appearance Urine pH Ur Specific [place] Urine Protein Urine Glucose (UA) Urine Ketones Urine Blood Urine Nitrite Urine Bilirubin Urine Urobilinogen Ur Leukocyte Esterase Urine WBC (Auto) Urine RBC (Auto) Ur Epithelial Cells Urine Mucus RPR Titer Nonreactive HIV 1&2 Antibody Screen Negative HIV P24 Antigen Negative 12/24/18 12/25/18 12/25/18 17:08 06:43 16:59 WBC RBC Hgb Hct MCV MCH MCHC RDW Plt Count MPV Sodium Potassium Chloride Carbon Dioxide Anion Gap BUN Creatinine Creat Clearance w eGFR POC Glucometer 129 124 146 Random Glucose Calcium Total Bilirubin AST ALT Alkaline Phosphatase Total Protein Albumin Urine Color Urine Appearance Urine pH Ur Specific [place] Urine Protein Urine Glucose (UA) Urine Ketones Urine Blood Urine Nitrite Urine Bilirubin Urine Urobilinogen Ur Leukocyte Esterase Urine WBC (Auto) Urine RBC (Auto) Ur Epithelial Cells Urine Mucus RPR Titer HIV 1&2 Antibody Screen HIV P24 Antigen 12/26/18 12/26/18 12/27/18 06:39 16:49 06:46 WBC RBC Hgb Hct MCV MCH MCHC RDW Plt Count MPV Sodium Potassium Chloride Carbon Dioxide Anion Gap BUN Creatinine Creat Clearance w eGFR POC Glucometer 122 133 115 Random Glucose Calcium Total Bilirubin AST ALT Alkaline Phosphatase Total Protein Albumin Urine Color Urine Appearance Urine pH Ur Specific [place] Urine Protein Urine Glucose (UA) Urine Ketones Urine Blood Urine Nitrite Urine Bilirubin Urine Urobilinogen Ur Leukocyte Esterase Urine WBC (Auto) Urine RBC (Auto) Ur Epithelial Cells Urine Mucus RPR Titer HIV 1&2 Antibody Screen HIV P24 Antigen 12/27/18 12/28/18 12/28/18 17:19 07:51 17:12 WBC RBC Hgb Hct MCV MCH MCHC RDW Plt Count MPV Sodium Potassium Chloride Carbon Dioxide Anion Gap BUN Creatinine Creat Clearance w eGFR POC Glucometer 118 114 129 Random Glucose Calcium Total Bilirubin AST ALT Alkaline Phosphatase Total Protein Albumin Urine Color Urine Appearance Urine pH Ur Specific [place] Urine Protein Urine Glucose (UA) Urine Ketones Urine Blood Urine Nitrite Urine Bilirubin Urine Urobilinogen Ur Leukocyte Esterase Urine WBC (Auto) Urine RBC (Auto) Ur Epithelial Cells Urine Mucus RPR Titer HIV 1&2 Antibody Screen HIV P24 Antigen 12/29/18 12/29/18 12/30/18 06:50 16:48 06:35 WBC RBC Hgb Hct MCV MCH MCHC RDW Plt Count MPV Sodium Potassium Chloride Carbon Dioxide Anion Gap BUN Creatinine Creat Clearance w eGFR POC Glucometer 121 122 127 Random Glucose Calcium Total Bilirubin AST ALT Alkaline Phosphatase Total Protein Albumin Urine Color Urine Appearance Urine pH Ur Specific [place] Urine Protein Urine Glucose (UA) Urine Ketones Urine Blood Urine Nitrite Urine Bilirubin Urine Urobilinogen Ur Leukocyte Esterase Urine WBC (Auto) Urine RBC (Auto) Ur Epithelial Cells Urine Mucus RPR Titer HIV 1&2 Antibody Screen HIV P24 Antigen 12/30/18 12/31/18 01/01/19 17:04 07:02 06:35 WBC RBC Hgb Hct MCV MCH MCHC RDW Plt Count MPV Sodium Potassium Chloride Carbon Dioxide Anion Gap BUN Creatinine Creat Clearance w eGFR POC Glucometer 125 112 128 Random Glucose Calcium Total Bilirubin AST ALT Alkaline Phosphatase Total Protein Albumin Urine Color Urine Appearance Urine pH Ur Specific [place] Urine Protein Urine Glucose (UA) Urine Ketones Urine Blood Urine Nitrite Urine Bilirubin Urine Urobilinogen Ur Leukocyte Esterase Urine WBC (Auto) Urine RBC (Auto) Ur Epithelial Cells Urine Mucus RPR Titer HIV 1&2 Antibody Screen HIV P24 Antigen CARDIAC: S1 S2, RRR LUNGS:CLEAR TO AUSCULTATE. NO RHONCHI. SLIGHT LOCALIZED WHEEZE ON RIGHT UPPER LOBE FIELD. THROAT:NO REDNESS OR SWELLING. MM WNL A:ASTHMA FLARE PLAN:DUONEB NEBULIZER DIRECTED. INCREASE PO FLUIDS.
[2019-01-01] MEDS ORDERED: ALBUTEROL SO4 2.5/IPRATROPIUM 0.5 INH SOL 3 ML VIAL.NEB. NEB SCH (12:00)
[2019-01-01] MEDS: QUEtiapine FUMARATE 200 MG TABLET PO SCH (21:42)
[2019-01-01] MEDS: traZODone HCL 100 MG TABLET (FP) PO SCH (21:42)
[2019-01-01] MEDS: THIAMINE HCL 100 MG TABLET (FP) PO SCH (21:42)
[2019-01-01] MEDS: ATORVASTATIN CA 40 MG TABLET (FP) PO SCH (21:43)
[2019-01-01] MEDS: MONTELUKAST NA 10 MG TABLET PO SCH (21:44)
[2019-01-02] MEDS: GABAPENTIN 300 MG CAPSULE (FP) PO SCH ×3 (07:06→21:33)
[2019-01-02] MEDS: ALBUTEROL SO4 2.5/IPRATROPIUM 0.5 INH SOL 3 ML VIAL.NEB. NEB PRN ×2 (07:07→14:39)
[2019-01-02] MEDS: metFORMIN HCL 500 MG TABLET (FP) PO SCH ×2 (07:07→16:49)
[2019-01-02] MEDS: LIDOCAINE 5% TOPICAL PATCH TP SCH (09:44)
[2019-01-02] MEDS: LISINOPRIL 20 MG TABLET (FP) PO SCH (09:44)
[2019-01-02] MEDS: NICOTINE 14 MG/24 HOURS TOPICAL PATCH TD SCH (09:48)
[2019-01-02] MEDS: METHOCARBAMOL 500 MG TABLET PO SCH ×4 (09:48→21:35)
[2019-01-02] MEDS: PRENATAL VITAMINS W/ FOLIC ACID TABLET (FP) PO SCH (09:48)
[2019-01-02] MEDS: FUROSEMIDE 20 MG TABLET (FP) PO SCH (09:48)
[2019-01-02] MEDS: CARVEDILOL 6.25 MG TABLET (FP) PO SCH ×2 (09:48→21:33)
[2019-01-02] MEDS: ASPIRIN 81 MG CHEWABLE TABLETS PO SCH (09:48)
[2019-01-02] MEDS: FLUTICASONE/SALMETEROL 100 MCG/50 MCG DISKUS IH SCH ×2 (09:49→21:34)
[2019-01-02] MEDS ORDERED: PT OWN MED DRAWER 7, Y5N ONE (09:49)
[2019-01-02] MEDS: MENTHOL/PHENOL 1 EACH UD MM PRN (11:13)
[2019-01-02] MEDS: ALBUTEROL SO4 8 GM HFA INHALER IH PRN (11:14)
[2019-01-02] MEDS: MONTELUKAST NA 10 MG TABLET PO SCH (21:33)
[2019-01-02] MEDS: QUEtiapine FUMARATE 200 MG TABLET PO SCH (21:33)
[2019-01-02] MEDS: ATORVASTATIN CA 40 MG TABLET (FP) PO SCH (21:33)
[2019-01-02] MEDS: THIAMINE HCL 100 MG TABLET (FP) PO SCH (21:33)
[2019-01-02] MEDS: traZODone HCL 100 MG TABLET (FP) PO SCH (21:34)
[2019-01-02] MEDS: LIDOCAINE PATCH REMOVAL MC SCH (21:35)
[2019-01-03] MEDS: metFORMIN HCL 500 MG TABLET (FP) PO SCH ×2 (06:38→16:45)
[2019-01-03] MEDS: GABAPENTIN 300 MG CAPSULE (FP) PO SCH ×3 (06:38→21:22)
[2019-01-03] MEDS: PRENATAL VITAMINS W/ FOLIC ACID TABLET (FP) PO SCH (10:16)
[2019-01-03] MEDS: LISINOPRIL 20 MG TABLET (FP) PO SCH (10:17)
[2019-01-03] MEDS: NICOTINE 14 MG/24 HOURS TOPICAL PATCH TD SCH (10:17)
[2019-01-03] MEDS: CARVEDILOL 6.25 MG TABLET (FP) PO SCH ×2 (10:17→21:22)
[2019-01-03] MEDS: ASPIRIN 81 MG CHEWABLE TABLETS PO SCH (10:17)
[2019-01-03] MEDS: FUROSEMIDE 20 MG TABLET (FP) PO SCH (10:19)
[2019-01-03] MEDS: LIDOCAINE 5% TOPICAL PATCH TP SCH (10:19)
[2019-01-03] MEDS: FLUTICASONE/SALMETEROL 100 MCG/50 MCG DISKUS IH SCH ×2 (10:20→21:23)
[2019-01-03] MEDS: METHOCARBAMOL 500 MG TABLET PO SCH ×4 (10:21→21:23)
[2019-01-03] MEDS ORDERED: PT OWN MED DRAWER 7, Y5N ONE (19:31)
[2019-01-03] MEDS: QUEtiapine FUMARATE 200 MG TABLET PO SCH (21:22)
[2019-01-03] MEDS: ATORVASTATIN CA 40 MG TABLET (FP) PO SCH (21:22)
[2019-01-03] MEDS: traZODone HCL 100 MG TABLET (FP) PO SCH (21:22)
[2019-01-03] MEDS: THIAMINE HCL 100 MG TABLET (FP) PO SCH (21:22)
[2019-01-03] MEDS: MONTELUKAST NA 10 MG TABLET PO SCH (21:22)
[2019-01-03] MEDS: LIDOCAINE PATCH REMOVAL MC SCH (21:24)
[2019-01-04] MEDS: GABAPENTIN 300 MG CAPSULE (FP) PO SCH ×3 (06:40→21:42)
[2019-01-04] MEDS: metFORMIN HCL 500 MG TABLET (FP) PO SCH ×2 (06:40→17:11)
[2019-01-04] MEDS: PRENATAL VITAMINS W/ FOLIC ACID TABLET (FP) PO SCH (10:37)
[2019-01-04] MEDS: LIDOCAINE 5% TOPICAL PATCH TP SCH (10:37)
[2019-01-04] MEDS: FUROSEMIDE 20 MG TABLET (FP) PO SCH (10:37)
[2019-01-04] MEDS: LISINOPRIL 20 MG TABLET (FP) PO SCH (10:37)
[2019-01-04] MEDS: METHOCARBAMOL 500 MG TABLET PO SCH ×4 (10:37→21:43)
[2019-01-04] MEDS: ASPIRIN 81 MG CHEWABLE TABLETS PO SCH (10:37)
[2019-01-04] MEDS: NICOTINE 14 MG/24 HOURS TOPICAL PATCH TD SCH (10:37)
[2019-01-04] MEDS: CARVEDILOL 6.25 MG TABLET (FP) PO SCH ×2 (10:37→21:42)
[2019-01-04] MEDS: FLUTICASONE/SALMETEROL 100 MCG/50 MCG DISKUS IH SCH ×2 (10:38→21:44)
[2019-01-04] MEDS ORDERED: ATORVASTATIN CA 20 MG TABLET (FP) ONE (19:38)
[2019-01-04] MEDS: THIAMINE HCL 100 MG TABLET (FP) PO SCH (21:42)
[2019-01-04] MEDS: MONTELUKAST NA 10 MG TABLET PO SCH (21:42)
[2019-01-04] MEDS: traZODone HCL 100 MG TABLET (FP) PO SCH (21:42)
[2019-01-04] MEDS: QUEtiapine FUMARATE 200 MG TABLET PO SCH (21:42)
[2019-01-04] MEDS: ATORVASTATIN CA 40 MG TABLET (FP) PO SCH (21:43)
[2019-01-04] MEDS: LIDOCAINE PATCH REMOVAL MC SCH (21:44)
[2019-01-05] MEDS: GABAPENTIN 300 MG CAPSULE (FP) PO SCH ×3 (06:57→21:25)
[2019-01-05] MEDS: metFORMIN HCL 500 MG TABLET (FP) PO SCH ×2 (06:57→16:28)
[2019-01-05] MEDS ORDERED: PT OWN MED DRAWER 7, Y5N ONE ×2 (08:29→19:56)
[2019-01-05] MEDS: FUROSEMIDE 20 MG TABLET (FP) PO SCH (10:55)
[2019-01-05] MEDS: PRENATAL VITAMINS W/ FOLIC ACID TABLET (FP) PO SCH (10:55)
[2019-01-05] MEDS: METHOCARBAMOL 500 MG TABLET PO SCH ×4 (10:55→21:25)
[2019-01-05] MEDS: FLUTICASONE/SALMETEROL 100 MCG/50 MCG DISKUS IH SCH ×2 (10:55→21:25)
[2019-01-05] MEDS: ASPIRIN 81 MG CHEWABLE TABLETS PO SCH (10:55)
[2019-01-05] MEDS: NICOTINE 14 MG/24 HOURS TOPICAL PATCH TD SCH (10:55)
[2019-01-05] MEDS: CARVEDILOL 6.25 MG TABLET (FP) PO SCH ×2 (10:55→21:25)
[2019-01-05] MEDS: LIDOCAINE 5% TOPICAL PATCH TP SCH (10:55)
[2019-01-05] MEDS: LISINOPRIL 20 MG TABLET (FP) PO SCH (10:55)
[2019-01-05] MEDS: ALBUTEROL SO4 8 GM HFA INHALER IH PRN (13:36)
[2019-01-05] MEDS: ATORVASTATIN CA 40 MG TABLET (FP) PO SCH (21:24)
[2019-01-05] MEDS: QUEtiapine FUMARATE 200 MG TABLET PO SCH (21:25)
[2019-01-05] MEDS: MONTELUKAST NA 10 MG TABLET PO SCH (21:25)
[2019-01-05] MEDS: traZODone HCL 100 MG TABLET (FP) PO SCH (21:25)
[2019-01-05] MEDS: LIDOCAINE PATCH REMOVAL MC SCH (21:26)
[2019-01-05] MEDS: THIAMINE HCL 100 MG TABLET (FP) PO SCH (21:26)
[2019-01-06] MEDS: metFORMIN HCL 500 MG TABLET (FP) PO SCH ×2 (06:34→17:20)
[2019-01-06] MEDS: GABAPENTIN 300 MG CAPSULE (FP) PO SCH ×3 (06:34→21:03)
[2019-01-06] MEDS: ASPIRIN 81 MG CHEWABLE TABLETS PO SCH (09:45)
[2019-01-06] MEDS: FUROSEMIDE 20 MG TABLET (FP) PO SCH (09:45)
[2019-01-06] MEDS: CARVEDILOL 6.25 MG TABLET (FP) PO SCH ×2 (09:45→21:04)
[2019-01-06] MEDS: LIDOCAINE 5% TOPICAL PATCH TP SCH (09:46)
[2019-01-06] MEDS: NICOTINE 14 MG/24 HOURS TOPICAL PATCH TD SCH (09:46)
[2019-01-06] MEDS: LISINOPRIL 20 MG TABLET (FP) PO SCH (09:47)
[2019-01-06] MEDS: PRENATAL VITAMINS W/ FOLIC ACID TABLET (FP) PO SCH (09:47)
[2019-01-06] MEDS: METHOCARBAMOL 500 MG TABLET PO SCH ×4 (09:47→21:05)
[2019-01-06] MEDS: FLUTICASONE/SALMETEROL 100 MCG/50 MCG DISKUS IH SCH ×2 (09:48→21:05)
--- NOTE | 2019-01-06 15:15 | PN ---
[facility] Progress Note Note: Patient will be discharged tomorrow. Scripts for 30 days supply of medications( Seroquel, Trazadone) will be electronicaly transmitted to [facility] at [address] [place] [address]
[2019-01-06] MEDS: THIAMINE HCL 100 MG TABLET (FP) PO SCH (21:02)
[2019-01-06] MEDS: QUEtiapine FUMARATE 200 MG TABLET PO SCH (21:03)
[2019-01-06] MEDS: MONTELUKAST NA 10 MG TABLET PO SCH (21:04)
[2019-01-06] MEDS: ATORVASTATIN CA 40 MG TABLET (FP) PO SCH (21:04)
[2019-01-06] MEDS: traZODone HCL 100 MG TABLET (FP) PO SCH (21:04)
[2019-01-06] MEDS: LIDOCAINE PATCH REMOVAL MC SCH (21:05)
[2019-01-07 07:01] VITALS: TEMP 98
[2019-01-07] MEDS: metFORMIN HCL 500 MG TABLET (FP) PO SCH (07:26)
[2019-01-07] MEDS: GABAPENTIN 300 MG CAPSULE (FP) PO SCH (07:26)
[2019-01-07] MEDS: LISINOPRIL 20 MG TABLET (FP) PO SCH (09:07)
[2019-01-07] MEDS: ASPIRIN 81 MG CHEWABLE TABLETS PO SCH (09:07)
[2019-01-07] MEDS: FUROSEMIDE 20 MG TABLET (FP) PO SCH (09:07)
[2019-01-07] MEDS: LIDOCAINE 5% TOPICAL PATCH TP SCH (09:07)
[2019-01-07] MEDS: NICOTINE 14 MG/24 HOURS TOPICAL PATCH TD SCH (09:07)
[2019-01-07] MEDS: FLUTICASONE/SALMETEROL 100 MCG/50 MCG DISKUS IH SCH (09:08)
[2019-01-07] MEDS: CARVEDILOL 6.25 MG TABLET (FP) PO SCH (09:08)
[2019-01-07] MEDS: PRENATAL VITAMINS W/ FOLIC ACID TABLET (FP) PO SCH (09:11)
[2019-01-07] MEDS: METHOCARBAMOL 500 MG TABLET PO SCH (09:11)
[2019-01-07 09:32] VITALS: BP 135/87; PULSE 91
--- NOTE | 2019-01-07 09:42 | PN ---
[facility] Progress Note Note: Patient to be discharged today. She is receiving aftercare at [facility] and is looking to go to [facility] that will be arranged through [facility]. Ms. Morrell has a primary care provider at [facility], located at [address] [place] [address]. She is making an appointment with PCP for care. Home Medications prescribed.
== END 2019-01-07 09:25 | disposition home or self-care (01) | DRG 772 ==
LOC: YASAS 15:34 → Y3E 21:05
PROVIDERS: ADMIT Neuromusculoskeletal Medicine & OMM; ATTEND Neuromusculoskeletal Medicine & OMM
PROC: HZ42ZZZ Group Counseling for Substance Abuse Treatment, Cognitive-Behavioral (ICD-10-PCS; principal; 2018-12-23)
DX: F10.20 Alcohol dependence, uncomplicated (principal); F14.20 Cocaine dependence, uncomplicated; F17.210 Nicotine dependence, cigarettes, uncomplicated; F19.282 Other psychoactive substance dependence with psychoactive substance-induced sleep disorder; F31.9 Bipolar disorder, unspecified; I50.9 Heart failure, unspecified; J44.9 Chronic obstructive pulmonary disease, unspecified; E11.9 Type 2 diabetes mellitus without complications; Z79.84 Long term (current) use of oral hypoglycemic drugs; M54.30 Sciatica, unspecified side; R76.11 Nonspecific reaction to tuberculin skin test without active tuberculosis
CPT/HCPCS: 36415; 71046-TC-FY; 80053; 81003; 81015; 82962; 85027; 86593; 87389; 93005; 93010; 94640